=== PATIENT | female | born 2000 | race Caucasian/White ===

== ENCOUNTER 2020-06-10 01:56 | Emergency (ER) | payer BC ==
[2020-06-10] MEDS ORDERED: ONDANSETRON 4 MG TAB.RAPDIS PO ONE (03:01)
[2020-06-10] MEDS ORDERED: KETOROLAC TROMETHAMINE 60 MG/2 ML SDV IM ONE (03:01)
[2020-06-10 03:16] LABS: ABSOLUTE EOSINOPHILS # (AUTO) 0.1 10^3/uL (0.0-0.6); ABSOLUTE LYMPHOCYTES (AUTO) 1.5 10^3/uL (0.5-4.7); ABSOLUTE MONOCYTES (AUTO) 0.4 10^3/uL (0.1-1.4); BASOPHILS % (AUTO) 0.6 % (0-2); HEMATOCRIT 36.8 % (36.0-47.0); LYMPHOCYTES % (AUTO) 21.6 % (13-45); MEAN CORPUSCULAR HEMOGLOBIN 31.4 pg (27.0-33.4); MEAN CORPUSCULAR HGB CONC 35.3 g/dL (32.0-36.0); MEAN CORPUSCULAR VOLUME 89 fl (80-97); MONOCYTES % (AUTO) 6.2 % (3-13); PLATELET COUNT 225 10^3/uL (150-450); RED BLOOD COUNT 4.14 10^6/uL (3.72-5.28); RED CELL DISTRIBUTION WIDTH 13.1 % (11.5-14.0); SEGMENTED NEUTROPHILS % (AUTO) 70.6 % (42-78); TOTAL CELLS COUNTED % (AUTO) 100 %
[2020-06-10 03:29] LABS: ALBUMIN 4.4 g/dL (3.5-5.0); ALKALINE PHOSPHATASE 46 U/L (38-126); ANION GAP 13 (5-19); ASPARTATE AMINO TRANSFERASE 22 U/L (14-36); BILIRUBIN,DIRECT 0.1 mg/dL (0.0-0.4); BILIRUBIN,TOTAL 0.5 mg/dL (0.2-1.3); BLOOD UREA NITROGEN 10 mg/dL (7-20); CALCIUM 9.6 mg/dL (8.4-10.2); CARBON DIOXIDE 21 mmol/L (22-30); CHLORIDE 106 mmol/L (98-107); GLUCOSE 119 mg/dL (75-110); POTASSIUM 3.6 mmol/L (3.6-5.0); TOTAL PROTEIN 7.4 g/dL (6.3-8.2)
--- NOTE | 2020-06-10 06:35 | ER Document Report ---
ED General - General Chief Complaint: Abdominal Pain Stated Complaint: ABDOMINAL PAIN Time Seen by Provider: 06/10/20 06:16 Primary Care Provider: PLACIDO SHARIF MD [NO LOCAL MD] - Follow up as needed FRANSISCO LAGUNAS MD [Primary Care Provider] - Follow up as needed Notes: Patient presents with left flank pain sharp woke her up from sleep with nausea that is now resolved. The pain was better with ibuprofen after she got to the ED but is now coming back slowly. She has a history of CTconfirmed kidney stones many years ago and has had intermittent bouts of flank pain since then without a true diagnosis. She says she actually captured the stone and it was sent in for analysis. She denies current fevers but does have some blood in her urine because she is on her period. TRAVEL OUTSIDE OF THE [place] IN LAST 30 DAYS: No - Related Data Allergies/Adverse Reactions: No Known Allergies Allergy (Unverified 06/10/20 02:29) Home Medications: CONTROL Past Medical History - General Information source: Patient - Social History Smoking Status: Never Smoker Frequency of alcohol use: None Drug Abuse: None Family History: None Review of Systems - Review of Systems Notes: REVIEW OF SYSTEMS GEN: Denies fever, chills, weight loss ENT: Denies sore throat, nasal discharge, ear pain EYES: Denies blurry vision, eye pain, discharge CV: Denies chest pain, palpitations, edema RESP: Denies cough, shortness of breath, wheezing GI: Flank pain left flank pain nausea a MSK: Denies joint pain/swelling, edema, SKIN: Denies rash, skin lesions LYMPH: Denies swollen glands/lymph nodes NEURO: Denies headache, focal weakness or numbness, dizziness PSYCH: Denies depression, suicidal or homicidal ideation PHYSICAL EXAMINATION General: No acute distress, well-nourished Head: Atraumatic, normocephalic ENT: Mouth normal, oropharynx moist, no exudates or tonsillar enlargement Eyes: Conjunctiva normal, pupils equal, lids normal Neck: No JVD, supple, no guarding CVS: Normal rate, regular rhythm, no murmurs Resp: No resp distress, equal and normal breath sounds bilaterally GI: Nondistended, soft, no tenderness to palpation, no rebound or guarding Ext: No deformities, no edema, normal range of motion in upper and lower ext Back: No CVA or midline TTP Skin: No rash, warm Lymphatic: No lymphadeopathy noted Neuro: Awake, alert. Face symmetric. GCS 15. Physical Exam - Vital signs Vitals: Temp Pulse Resp BP Pulse Ox 97.6 F 71 16 120/72 100 06/10/20 02:06 06/10/20 02:06 06/10/20 02:06 06/10/20 02:06 06/10/20 02:06 Course - Re-evaluation Re-evalutation: 06/10/20 06:34 Very well-appearing young lady with a history of kidney stones presenting with normal vital signs left flank pain no CVA tenderness or abdominal tenderness. She has normal laboratory testing. Her urine is pending. 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 06/10/20 07:19 Hematuria without significant infection. Trace hydro on ultrasound. Long discussion regarding risks and benefits of radiation, elected to defer We will treat his renal colic follow-up with urology. Will do half dose of nighttime Flomax given her size and age. She does not want narcotics will prescribe Zofran Motrin. Asked to stay on top of the pain for 2 days and then go as needed. I have discussed with the patient there likely diagnosis, aftercare plan, follow-up plans and my usual and customary return precautions. They verbalized understanding of this.9 - Vital Signs Vital signs: Temp Pulse Resp BP Pulse Ox 98.7 F 72 16 110/72 98 06/10/20 07:14 06/10/20 07:14 06/10/20 07:14 06/10/20 07:14 06/10/20 07:14 - Laboratory Result Diagrams: 06/10/20 02:45 06/10/20 02:45 Laboratory results interpreted by me: 06/10/20 06/10/20 02:45 05:42 Carbon Dioxide 21 L Glucose 119 H Urine Protein 100 H Urine Ketones TRACE H Urine Blood MODERATE H Urine Ascorbic Acid 20 H Procedures - Ultrasound/Bedside Ultrasound/Bedside Ultrasound: Other - -Ultrasound kidneys bilateral limited. Right kidney normal. Left kidney with mild/trace hydronephrosis, no stone visualized. Patient t olerated procedure well. No tenderness during ultrasound exam. Discharge - Discharge Clinical Impression: Renal colic on left side Condition: Good Disposition: HOME, SELF-CARE Instructions: Kidney Stone ([facility]) Prescriptions: Tamsulosin HCl [Flomax] 0.2 mg PO DAILY #3 cap.er.24h Ibuprofen [Motrin 600 Mg Tablet] 600 mg PO TID #15 tablet Ondansetron [Zofran Odt 4 mg Tablet] 1 - 2 tab PO Q4H PRN #15 tab.rapdis PRN Reason: For Nausea/Vomiting Referrals: FRANSISCO LAGUNAS MD [Primary Care Provider] - Follow up as needed POINT,PLACIDO Martinez MD [NO LOCAL MD] - Follow up as needed
[2020-06-10 06:48] LABS: AMORPHOUS SEDIMENT,URINE TRACE /HPF; APPEARANCE,URINE TURBID; BILIRUBIN,URINE NEGATIVE (NEGATIVE); COLOR,URINE YELLOW; GLUCOSE, URINE NEGATIVE (NEGATIVE); KETONES,URINE TRACE mg/dL (NEGATIVE); LEUKOCYTE ESTERASE,URINE NEGATIVE (NEGATIVE); NITRITE,URINE NEGATIVE (NEGATIVE); PROTEIN,URINE 100 mg/dL (NEGATIVE); URINE SPECIFIC GRAVITY 1.035; UROBILINOGEN,URINE NEGATIVE mg/dL (<2.0)
[2020-06-10] MEDS ORDERED: IBUPROFEN 600 MG TABLET PO ONE (06:59)
[2020-06-10 07:15] VITALS: BP 110/72
== END 2020-06-10 07:14 | disposition home or self-care (01) ==
LOC: ER 01:56
DX: N23 Unspecified renal colic (principal); R11.0 Nausea
CPT/HCPCS: 99285; 96372; 36415; 84702; 83690; 85025; 80053; 81001; J1885; S0119